=== PATIENT | female | born 2005 | race Caucasian/White ===

== ENCOUNTER 2023-01-23 14:14 | Outpatient (CLI) | payer MEDICAID, SELFPAY ==
--- NOTE | 2023-01-23 14:25 | US_ITS ---
WS: [id number] ULTRASOUND SOFT TISSUES submandibular region. HISTORY: LYMPHADENITIS COMPARISON: None available. TECHNIQUE: 2-D and color Doppler imaging is submitted. Ultrasound is directed along the midline in the submandibular region. There is a very small hypoechoi c nodule measuring 6 x 3 x 9 mm. This is very similar echogenicity to the adjacent strap muscles. The re is no increased vascularity. Could potentially be a small lymph node or part of the normal muscula ture. This is not a fluid-filled collection. No cervical chain lymph nodes. US/US soft tissue head neck [id number] IMPRESSION: Very vague, nonspecific isoechoic nodule in the midline of the submandibular re gion measuring 6 x 3 x 9 mm. May be part of the strap muscles or small lymph no de. If further evaluation is clinically thought necessary consider follow-up CT neck with IV contrast.
== END 2023-01-23 14:15 | disposition home or self-care (01) ==
LOC: RAD 14:20
PROVIDERS: PCP Nurse Practitioner Family; Visit Provider Nurse Practitioner Family
DX: I88.9 Nonspecific lymphadenitis, unspecified (principal)
CPT/HCPCS: 76536